=== PATIENT | male | born 1965 | race Caucasian/White ===

== ENCOUNTER 2016-08-15 22:25 | Observation (INO) | payer OTHER ==
[~2016-08-15] VITALS: Ht 175.3 cm; Wt 108.0 kg
[2016-08-15] MEDS ORDERED: MoRPHine SULFATE 10 MG/ML CARP/VIAL IV STA (22:39)
[2016-08-15] MEDS ORDERED: ONDANSETRON INJ 2 MG/ML 2 ML VIAL IV STA (22:39)
[2016-08-15] MEDS ORDERED: SODIUM CHLORIDE 0.9% 1000ML 1,000 ML IV STA (22:39)
--- NOTE | 2016-08-15 23:00 | DIAGNOSTIC IMAGING REPORT ---
CHEST ONE VIEW PORTABLE HISTORY: RUQ/right rib pain COMPARISON: Chest 02/04/2008. FINDINGS: The lungs are clear. Cardiac silhouette is normal in size. No pleural effusions. No pneumothorax. No rib fractures identified. IMPRESSION: No acute process. Electronically signed by: Per Catherine M.D. 08/15/2016 10:59 PM Dictated Date/Time: 08/15/2016 10:57 PM
--- NOTE | 2016-08-15 23:04 | EMERGENCY ROOM VISIT NOTE ---
History First contact with patient: 22:30 Chief Complaint: ABDOMINAL PAIN Stated Complaint: URQ PAIN Nursing Triage Summary: c/o ruq abd pain since 1900. states hx of " gallbladder issues in the past." History of Present Illness The patient is a 51 year old male who presents to the Emergency Room with complaints of right upper quadrant pain. The patient states that approximately 3 hours ago, he had an acute onset of right upper quadrant pain with radiation into the back. The patient states that after eating dinner tonight, he developed right upper quadrant pain. He states he had steak and ribs for dinner. He feels he may be having a gallbladder attack, because he did have similar symptoms approximately 10 years ago. He denies any associated nausea, vomiting, changes in bowel movements, urinary symptoms, chest pain or shortness of breath. He denies any aggravating or alleviating factors. He rates the discomfort a 9/10 and states it has been constant. He has a history of a hernia repair but denies any other significant past medical history. He has not taken any medication for his pain. Review of Systems A complete 10 point review of systems was reviewed with the patient with pertinent positives and negatives as per history of present illness. All else were negative. Past Medical/Surgical History Medical Problems: (1) Rupture of distal biceps tendon Social History Smoking Status: Never Smoker Marital Status: Housing Status: lives with significant other Occupation Status: employed Current/Historical Medications No Active Prescriptions or Reported Meds Allergies Coded Allergies: No Known Allergies (Unverified , 08/15/16) Physical Exam Vital Signs Date Time Temp Pulse Resp B/P (MAP) Pulse Ox O2 Delivery O2 Flow Rate FiO2 08/16/16 01:46 75 18 129/84 96 08/15/16 23:54 70 18 133/82 96 Room Air 08/15/16 22:27 36.5 67 18 159/104 97 Room Air Physical Exam VITALS: Vitals are noted on the nurse's note and reviewed by myself. Vital signs stable. GENERAL: This is a 51-year-old male, in no acute distress, nondiaphoretic, well- developed well-nourished. SKIN: No rashes present. HEENT: Normocephalic. PERRLA. EOMI. Nares patent. Mucous membranes moist. HEART: Regular rate and rhythm without murmurs gallops or rubs. LUNGS: Clear to auscultation bilaterally without wheezes, rales or rhonchi. ABDOMEN: Positive bowel sounds x 4. Soft, no significant tenderness to palpation. MUSCULOSKELETAL: No chest wall tenderness. NEURO: Patient was alert and oriented to person place and time. Medical Decision & Procedures ER Provider Diagnostic Interpretation: US RUQ: Distended gallbladder with a nonmobile stone at the gallbladder neck. Sludge also noted within the gallbladder. Gallbladder wall is not thickened. Evaluation for sonographic Shankar's sign noted by recent pain medication. Correlation with nuclear medicine scan could be considered as clinically warranted. Common bile duct is not dilated. Liver and right kidney unremarkable. Radiologist: Ej Salmeron MD Laboratory Results 08/15/16 23:05 Red Blood Count 5.16, Mean Corpuscular Volume 95.0, Mean Corpuscular Hemoglobin 31.8, Mean Corpuscular Hemoglobin Concent 33.5, Mean Platelet Volume 10.4, Neutrophils (%) (Auto) 49.7, Lymphocytes (%) (Auto) 37.8, Monocytes (%) (Auto) 8.8, Eosinophils (%) (Auto) 2.9, Basophils (%) (Auto) 0.5, Neutrophils # (Auto) 3.71, Lymphocytes # (Auto) 2.82, Monocytes # (Auto) 0.66, Eosinophils # (Auto) 0.22, Basophils # (Auto) 0.04 08/15/16 23:05 Test 08/15/16 23:00 08/15/16 23:05 Urine Color YELLOW Urine Appearance CLEAR (CLEAR) Urine pH 7.5 (4.5-7.5) Urine Specific Belden 1.021 (1.000-1.030) Urine Protein NEG (NEG) Urine Glucose (UA) NEG (NEG) Urine Ketones NEG (NEG) Urine Occult Blood NEG (NEG) Urine Nitrite NEG (NEG) Urine Bilirubin NEG (NEG) Urine Urobilinogen NEG (NEG) Urine Leukocyte Esterase NEG (NEG) White Blood Count 7.47 K/uL (4.8-10.8) Red Blood Count 5.16 M/uL (4.7-6.1) Hemoglobin 16.4 g/dL (14.0-18.0) Hematocrit 49.0 % (42-52) Mean Corpuscular Volume 95.0 fL (80-100) Mean Corpuscular Hemoglobin 31.8 pg (25-34) Mean Corpuscular Hemoglobin Concent 33.5 g/dl (32-36) Platelet Count 221 K/uL (130-400) Mean Platelet Volume 10.4 fL (7.4-10.4) Neutrophils (%) (Auto) 49.7 % Lymphocytes (%) (Auto) 37.8 % Monocytes (%) (Auto) 8.8 % Eosinophils (%) (Auto) 2.9 % Basophils (%) (Auto) 0.5 % Neutrophils # (Auto) 3.71 K/uL (1.4-6.5) Lymphocytes # (Auto) 2.82 K/uL (1.2-3.4) Monocytes # (Auto) 0.66 K/uL (0.11-0.59) Eosinophils # (Auto) 0.22 K/uL (0-0.5) Basophils # (Auto) 0.04 K/uL (0-0.2) RDW Standard Deviation 45.5 fL (36.4-46.3) RDW Coefficient of Variation 13.1 % (11.5-14.5) Immature Granulocyte % (Auto) 0.3 % Immature Granulocyte # (Auto) 0.02 K/uL (0.00-0.02) D-Dimer 430 ug/L FEU (0-500) Anion Gap 8.0 mmol/L (3-11) Est Creatinine Clear Calc Drug Dose 64.7 ml/min Estimated GFR () 56.2 Estimated GFR (Non- 48.5 BUN/Creatinine Ratio 14.8 (10-20) Calcium Level 8.6 mg/dl (8.5-10.1) Total Bilirubin 0.3 mg/dl (0.2-1) Aspartate Amino Transf (AST/SGOT) 22 U/L (15-37) Alanine Aminotransferase (ALT/SGPT) 30 U/L (12-78) Alkaline Phosphatase 100 U/L (45-117) Total Protein 7.6 gm/dl (6.4-8.2) Albumin 4.1 gm/dl (3.4-5.0) Globulin 3.5 gm/dl (2.5-4.0) Albumin/Globulin Ratio 1.2 (0.9-2) Lipase 195 U/L (73-393) Medications Administered Medications (Trade) Dose Ordered Sig/Chapo Route Start Time Stop Time Status Last Admin Dose Admin Sodium Chloride 1,000 ml @ 999 mls/hr Q1H1M STAT IV 08/15/16 22:39 08/15/16 23:39 DC 08/15/16 23:08 999 MLS/HR Morphine Sulfate (MoRPHine SULFATE INJ) 6 mg NOW STAT IV 08/15/16 22:39 08/15/16 22:41 DC 08/15/16 23:08 6 MG Ondansetron HCl (Zofran Inj) 4 mg NOW STAT IV 08/15/16 22:39 08/15/16 22:41 DC 08/15/16 23:08 4 MG ED Course The patient was evaluated as above. Labs were drawn and IV access was obtained. Patient was medicated with 6 mg morphine IV, 4 mg Zofran IV and 1 L normal saline solution. Patient was reevaluated and was informed that we are awaiting ultrasound results. He states his pain is much better now. Case was discussed with the Dr. Arevalo, general surgeon client professional. They agreed to evaluate the patient for admission. Medical Decision Differential diagnosis includes cholecystitis, ascending cholangitis, pancreatitis, hepatitis, pulmonary embolism, herpes zoster, among others. The patient is a 51-year-old male who presents today complaining of with upper quadrant abdominal pain which began after eating dinner tonight. Labs revealed no leukocytosis, anemia or concerning elect avoid abnormalities. Lipase is not elevated. LFTs within normal limits. Urinalysis was not suggestive of infection. Right upper quadrant ultrasound did show a stone within the gallbladder neck and gallbladder sludge. Consultation was made with general surgery, Dr. Arevalo, who agreed to evaluate the patient for admission. Medication reconciliation: I attest that I have personally reviewed the patient 's current medication list. Blood pressure screening: Patient was found to have an elevated blood pressure and was referred to their primary care provider for recheck and further treatment. Impression Primary Impression: Gall bladder disease Departure Information Prescriptions No Active Prescriptions or Reported Meds Referrals Liliane Chandler D.O. (PCP) Patient Instructions My [facility]
[2016-08-15 23:18] LABS: BASO % 0.5 %; BASO ABS # 0.04 K/uL (0-0.2); COMPLETE YES; EOS % 2.9 %; IG% 0.3 %; LYMPH % 37.8 %; LYMPH ABS # 2.82 K/uL (1.2-3.4); MEAN CORPUSCULAR HEMOGLOBIN 31.8 pg (25-34); MEAN CORPUSCULAR HGB CONC 33.5 g/dl (32-36); MEAN PLATELET VOLUME 10.4 fL (7.4-10.4); MONO % 8.8 %; NEUT % 49.7 %; PLATELET COUNT 221 K/uL (130-400); RED BLOOD COUNT 5.16 M/uL (4.7-6.1); WHITE BLOOD COUNT 7.47 K/uL (4.8-10.8)
[2016-08-15 23:27] LABS: URINE APPEARANCE CLEAR (CLEAR); URINE BILIRUBIN NEG (NEG); URINE COLOR YELLOW; URINE NITRITE NEG (NEG); URINE PH 7.5 (4.5-7.5); URINE SPECIFIC GRAVITY 1.021 (1.000-1.030); UROBILINOGEN NEG (NEG); ZZUR CULT IF INDIC CLEAN CATCH NO
[2016-08-15 23:35] LABS: BUN/CREATININE RATIO 14.8 (10-20); CALCIUM 8.6 mg/dl (8.5-10.1); CREATININE 1.6 mg/dl (0.60-1.40); POTASSIUM 3.9 mmol/L (3.5-5.1)
[2016-08-15 23:38] LABS: ALB/GLOB RATIO 1.2 (0.9-2)
[2016-08-15 23:38] LABS: MANUAL MICROSCOPIC REQUIRED? NO; REVIEW REQ? NO
[2016-08-16] VITALS (9 sets, daily range): BP systolic 110–164; BP diastolic 70–93; PULSE 69–100; TEMP 36.3–36.8; O2SAT 92–97; Ht 175.3 cm; Wt 108.0 kg
[2016-08-16] MEDS ORDERED: NURSING VERBAL MED ORDER ONE (01:30)
[2016-08-16] MEDS ORDERED: ONDANSETRON INJ 2 MG/ML 2 ML VIAL IV PRN ×2 (02:15→14:30)
[2016-08-16] MEDS ORDERED: IV FLUIDS COMPLETED PRN (02:15)
[2016-08-16] MEDS ORDERED: MoRPHine SULFATE 2 MG/ML CARP IV PRN (02:15)
[2016-08-16] MEDS: CEFOXITIN IV 2,000 MG in DEXTROSE 5% 50ML 50 ML IV SCH ×4 (02:25→19:29)
[2016-08-16] MEDS: LACTATED RINGER'S 1000ML 1,000 ML IV SCH ×3 (02:26→18:06)
--- NOTE | 2016-08-16 07:13 | DIAGNOSTIC IMAGING REPORT ---
ULTRASOUND RIGHT UPPER QUADRANT ABDOMEN CLINICAL HISTORY: Right upper quadrant abdominal pain. COMPARISON STUDY: Abdominal CT dated 02/04/2008. TECHNIQUE: Real-time, grayscale, and color flow sonography of the right upper quadrant of the abdomen was performed. Images are reviewed in the transverse and longitudinal planes. FINDINGS: Liver: The liver is normal in size and echotexture. There is no intrahepatic biliary ductal dilatation. The main portal vein is patent. Gallbladder: The gallbladder is distended. There are shadowing calcified gallstones identified. A 2.2 cm stone is seen in the region of the gallbladder neck. The gallbladder wall is top normal in thickness measuring up to 3 mm and appears edematous. A sonographic Shankar's sign is equivocal. No pericholecystic fluid is identified. The common bile duct measures up to 0.2 cm in diameter. Pancreas: Not well visualized due to overlying bowel gas. Right kidney: Survey images of the right kidney demonstrate normal size and echotexture. There is no hydronephrosis. Ascites: None. IMPRESSION: 1. Cholelithiasis with findings concerning for acute cholecystitis. Clinical correlation will be required. Nuclear hepatobiliary scan could be considered for confirmation. 2. The pancreas was not well visualized due to overlying bowel gas. Electronically signed by: Devin Arias M.D. 08/16/2016 7:11 AM Dictated Date/Time: 08/16/2016 7:07 AM
--- NOTE | 2016-08-16 07:33 | History and Physical: Surg Cnt ---
History & Physical Date Aug 16, 2016. (Katia Patten ., JOSEPHINE) Chief Complaint RUQ abdominal pain (Katia Patten PA-C) History of Present Illness Rey is a pleasant 51 year-old male who presented to emergency department last evening around 2300 for right upper abdominal pain that began about 3 hours after dinner. He had steak and ribs for dinner. Rey states he had gallbladder issues about 15-20 years ago which would cause him some right upper pain and then resolve shortly after. He states this time the pain would not subside and was pretty substantial. States he never goes to the doctors but the pain was severe so he decided to go to emergency department. Denies of any associated fever, chills, nausea, vomiting, changes in bowel habits, diarrhea, constipation, or blood in stools. Pain radiated to the back. States he has had a hernia repair in . Unsure if they used mesh or not. No other abdominal surgeries. No significant past medical history. Takes no medications at home. Only other surgery was right distal biceps repair. He had an abdominal ultrasound in the ER which showed a 2.2 cm stone in the neck of the gallbladder with distended gallbladder findings concerning for acute cholecystitis. CBD 0.2 cm. Labs including cbc, and LFTS within normal limits. Since admission, Rey states the pain is no longer present and he is feeling much better. Had pain medication through the IV when he arrived in his room. (Katia Patten ., JOSEPHINE) Past Medical/Surgical History Medical Problems: (1) Rupture of distal biceps tendon (Katia Patten .JOSEPHINE) Additional History Hepatic Disease: No Endocrine Disorder: No Kidney Disease: No Hypertension: No Heart Disease: No Bleeding Tendencies: No Infectious Diseases: No (Katia Patten .JOSEPHINE) Allergies Coded Allergies: No Known Allergies (Unverified , 08/15/16) Home Medications No Active Prescriptions or Reported Meds Physical Examination Skin: warm/dry, no rash Eyes: sclerae normal Head: normocephalic, atraumatic Neck: trachea midline Respiratory/Chest: lungs clear, normal breath sounds, no respiratory distress Cardiovascular: regular rate, rhythm, no murmur Abdomen / GI: normal bowel sounds, non tender, + pertinent finding (negative Muprhy's sign) Back: normal inspection Extremities: normal inspection Neurologic/Psych: alert, oriented x 3 (Katia Patten ., MEEK-C) Diagnosis Cholelithiasis with Acute cholecystitis, distended gallbladder - No leukocytosis - LFTS within normal limits - CBD normal caliber - Ultrasound showing large 2.2 cm in the neck of the gallbladder. Patient currently asymptomatic and abdominal examination completely benign at this time. (He was given 6 mg of Morphine IV in the ER on arrival and then another 2 mg of Morphine at 2 am). (Katia Patten ., MEEK-C) Plan of Treatment Continue current management of IV fluids, IV antibiotics, IV pain medication and IV Zofran as needed Given the large gallstone at neck of gallbladder will discuss laparoscopic cholecystectomy with patient (Katia Patten ., PA-C) RUQ abdominal pain with cholelithiasis and mild gallbladder wall thickening. Pain is now just a dull ache, LFT's and WBC normal. Have recommended laparoscopic cholecystectomy. I have explained the possible need to convert to an open procedure and explained the possible complications and answered his questions. He has signed a consent form. (Hans Cabrera M.D.)
[2016-08-16] MEDS ORDERED: HEPARIN SOD (PORCINE) 1000 UNIT/ML 10 ML VIAL ONE (14:01)
[2016-08-16] MEDS ORDERED: BUPIVACAINE 0.5 % 5 MG/1 ML MPF 30ML VIAL ONE (14:01)
[2016-08-16] MEDS ORDERED: CONRAY 60% 50 ML VIAL ONE (14:01)
[2016-08-16] MEDS ORDERED: CEFAZOLIN SOD 1 GM VIAL ONE (14:01)
[2016-08-16] MEDS ORDERED: ROCURONIUM BROMIDE 10 MG/ML 5 ML VIAL ONE (14:03)
[2016-08-16] MEDS ORDERED: DEXAMETHASONE SOD INJ 4 MG/ML VIAL ONE (14:03)
[2016-08-16] MEDS ORDERED: FENTANYL CITRATE INJ 50 MCG/1 ML 2 ML VIAL ONE ×2 (14:03→15:28)
[2016-08-16] MEDS ORDERED: ONDANSETRON INJ 2 MG/ML 2 ML VIAL ONE (14:03)
[2016-08-16] MEDS ORDERED: LIDOCAINE HCL 2% 2 ML VIAL (20MG/ML) ONE (14:03)
[2016-08-16] MEDS ORDERED: PROPOFOL IV EMULSION 10 MG/ML 20 ML VIAL IV ONE (14:03)
[2016-08-16] MEDS ORDERED: MIDAZOLAM HCL 1 MG/ML 2ML VIAL ONE (14:03)
[2016-08-16] MEDS ORDERED: HYDROmorphone INJ 0.5 MG/0.5 ML SYR IV PRN (14:30)
[2016-08-16] MEDS ORDERED: LABETALOL HCL IV 5 MG/ML 20ML IV PRN (14:30)
[2016-08-16] MEDS ORDERED: ATROPINE SULFATE 0.1 MG/ML 5ML SYR IV PRN (14:30)
[2016-08-16] MEDS ORDERED: KETOROLAC TROMETHAMINE 30 MG/ML VIAL IV. PRN (14:30)
[2016-08-16] MEDS ORDERED: PHENYLEPHRINE 100MCG/ML 5ML SYR ONE (14:57)
[2016-08-16] MEDS ORDERED: GLYCOPYRROLATE INJ 0.2 MG/ML VIAL ONE ×2 (15:06→15:25)
[2016-08-16] MEDS ORDERED: KETOROLAC TROMETHAMINE 30 MG/ML VIAL ONE (15:06)
[2016-08-16] MEDS ORDERED: NEOSTIGMINE METHYLSULFATE 5 MG/5 ML SYR ONE (15:06)
--- NOTE | 2016-08-16 15:41 | [facility] Post Operative Brief Note ---
Immediate Operative Summary Operative Date Aug 16, 2016. Pre-Operative Diagnosis Acute cholecystitis, cholelithiasis Post-Operative Diagnosis Acute cholecystitis, cholelithiasis Procedure(s) Performed Laparoscopic Cholecystectomy Surgeon Dr. Cabrera Lay Up Operator Surgeon(s) Marla Brewer, Matthew Santos student [employer] Estimated Blood Loss 10 cc Findings See dictation Specimens A: gallbladder and contents Drains None Anesthesia General Complication(s) None Disposition Recovery Room / PACU
[2016-08-16] MEDS ORDERED: MoRPHine SULFATE 4 MG/ML 1 ML CARP\\VIAL IV PRN (15:45)
[2016-08-16] MEDS ORDERED: ESMOLOL HCL 10 MG/ML 10 ML VIAL ONE (15:51)
--- NOTE | 2016-08-16 16:40 | Anesthesiology Progress Note ---
Anesthesia Post Op Note Date & Time Aug 16, 2016 at 16:40 Vital Signs Pain Intensity: 0 Vital Signs Past 12 Hours Date Time Temp Pulse Resp B/P (MAP) Pulse Ox O2 Delivery O2 Flow Rate FiO2 08/16/16 16:31 150/94 08/16/16 16:30 76 17 08/16/16 16:30 74 17 94 08/16/16 16:26 149/94 08/16/16 16:25 75 16 08/16/16 16:25 74 16 92 08/16/16 16:24 148/94 08/16/16 16:22 78 18 08/16/16 16:22 78 18 90 08/16/16 16:21 164/88 08/16/16 16:20 36.8 81 19 148/94 (103) 94 Nasal Cannula 2 08/16/16 16:17 80 19 08/16/16 16:17 81 19 93 08/16/16 16:16 150/97 08/16/16 16:12 83 20 08/16/16 16:12 84 20 93 08/16/16 16:11 127/97 08/16/16 16:07 72 19 08/16/16 16:07 71 19 95 08/16/16 16:06 84 21 08/16/16 16:06 84 21 124/79 95 08/16/16 16:01 83 20 08/16/16 16:01 79 20 123/79 94 08/16/16 15:57 139/90 08/16/16 15:56 36.1 86 16 139/90 94 Mask 10 08/16/16 07:40 Room Air 08/16/16 07:13 36.7 74 16 135/92 (106) 97 Room Air Notes Mental Status: alert / awake / arousable, participated in evaluation Pt Amnestic to Procedure: Yes Nausea / Vomiting: adequately controlled Pain: adequately controlled Airway Patency, RR, SpO2: stable & adequate BP & HR: stable & adequate Hydration State: stable & adequate Anesthetic Complications: no major complications apparent
[2016-08-16] MEDS: OXYCODONE/ACETAMINOPHEN 5-325 TAB PO PRN ×2 (16:53→21:28)
--- NOTE | 2016-08-16 22:18 | OPERATIVE REPORT ---
DATE OF OPERATION: 08/16/2016 PREOPERATIVE DIAGNOSES: Cholelithiasis, acute cholecystitis. POSTOPERATIVE DIAGNOSES: Same. PROCEDURE: Laparoscopic cholecystectomy. SURGEON: Dr. Cabrera. P[employer]ER [employer]INTS RESTORER: Katia Patten PA-C. FINDINGS: The gallbladder had 1 large stone within the lumen. The cystic duct was not dilated. There was some edema around the gallbladder. The gallbladder wall was mildly thickened. The liver was of normal size and contour. TECHNIQUE: The patient was given a general anesthetic and the area was prepped and draped in usual sterile fashion. Transverse incision was made below the umbilicus and carried down through the subcutaneous tissue to the fascia. During that dissection, a small umbilical hernia was identified. The hernia sac and preperitoneal fat were off the surrounding connective tissue and off the skin and then amputated. That allowed me to access the abdomen through the hernia defect. The abdomen was then insufflated to a pressure of 15 mmHg with carbon dioxide. The upper midline, midclavicular and anterior axial introducers were placed under direct vision through small skin incisions. I was then able to elevate the gallbladder and grasp the infundibulum and open the peritoneum, first on the lateral side, then anteriorly, then into the triangle of Calot, and then dissecting the infundibulum away from the liver on the lateral and then medial sides. That allowed me to identify the cystic duct. The cystic duct was isolated 360 degrees, clamped twice proximally and once near the gallbladder and divided. That allowed me further access behind the cystic duct and the cystic artery could be identified, isolated, clamped twice proximally and once near the gallbladder and divided. There were some other tubular structures that were clamped and divided. In dissecting the gallbladder, it was noted that most likely the large lymphatics were posterior branches of the artery. Once the gallbladder dissection off the liver was completed, the gallbladder was placed into an Endobag and brought out through the upper midline incision. That introducer was replaced and the liver edge was elevated. There was no bleeding from the gallbladder bed of the liver and the previously placed clips were intact. Subdiaphragmatic and subhepatic spaces were irrigated and irrigation removed and that was repeated until the return was clear. The gas was allowed to escape. The umbilical introducer site which was through the hernia was closed with interrupted 0 PDS in the upper midline and the fascia was closed with interrupted 2-0 Vicryl. The skin was closed with 4-0 Monocryl in either an interrupted or running subcuticular fashion. Skin was anesthetized with 0.5% Marcaine. The skin was cleansed, dried, benzoin placed, Steri-Strips applied. Estimated blood loss was 10 mL. Sponge, needle and instrument counts were correct prior to closure. The patient tolerated the surgical procedure without complication and was transferred to recovery. I attest to the content of the Intraoperative Record and any orders documented therein. Any exception s are noted below.
[2016-08-17] MEDS: CEFOXITIN IV 2,000 MG in DEXTROSE 5% 50ML 50 ML IV SCH ×2 (01:54→08:20)
[2016-08-17] MEDS: LACTATED RINGER'S 1000ML 1,000 ML IV SCH (01:54)
[2016-08-17 03:10] VITALS: BP 94/59; PULSE 73; TEMP 36.7; O2SAT 94
[2016-08-17 07:29] VITALS: BP 133/91; PULSE 76; TEMP 36.6; O2SAT 94
--- NOTE | 2016-08-17 08:02 | Anesthesiology Progress Note ---
Anesthesia Post Op Note Date & Time Aug 17, 2016 at 08:02 Vital Signs Vital Signs Past 12 Hours Date Time Temp Pulse Resp B/P (MAP) Pulse Ox O2 Delivery O2 Flow Rate FiO2 08/17/16 07:29 36.6 76 19 133/91 (105) 94 Room Air 08/17/16 03:10 36.7 73 16 94/59 (71) 94 Room Air 08/16/16 23:00 36.8 100 16 110/70 (83) 94 Room Air 08/16/16 20:07 36.5 94 18 131/89 (103) 94 Room Air Notes Mental Status: alert / awake / arousable, participated in evaluation Pt Amnestic to Procedure: Yes Nausea / Vomiting: adequately controlled Pain: adequately controlled Airway Patency, RR, SpO2: stable & adequate BP & HR: stable & adequate Hydration State: stable & adequate Anesthetic Complications: no major complications apparent
--- NOTE | 2016-08-17 09:05 | Surgery Progress Note ---
Surgery Progress Note Date of Service Aug 17, 2016. Subjective Post OP Day: 1 + feeling well, + ambulating, + flatus, + pain controlled, + diet (had some crakers and rice last night), No complaints, No chest pain, No SOB, No bowel movement, No nausea, No vomiting Objective Vital Signs: Date Time Temp Pulse Resp B/P (MAP) Pulse Ox O2 Delivery O2 Flow Rate FiO2 08/17/16 08:00 Room Air 08/17/16 07:29 36.6 76 19 133/91 (105) 94 Room Air 08/17/16 03:10 36.7 73 16 94/59 (71) 94 Room Air 08/16/16 23:00 36.8 100 16 110/70 (83) 94 Room Air 08/16/16 20:07 36.5 94 18 131/89 (103) 94 Room Air 08/16/16 19:30 Room Air 08/16/16 18:45 36.3 75 16 142/89 (106) 95 Nasal Cannula 2.0 08/16/16 17:40 36.5 69 16 133/82 (99) 92 Nasal Cannula 2.0 08/16/16 17:07 36.4 70 16 134/84 (101) 92 Nasal Cannula 2.0 08/16/16 16:45 93 Nasal Cannula 2.0 08/16/16 16:45 93 Nasal Cannula 2.0 08/16/16 16:31 150/94 08/16/16 16:30 76 17 08/16/16 16:30 74 17 94 08/16/16 16:26 149/94 08/16/16 16:25 75 16 08/16/16 16:25 74 16 92 08/16/16 16:24 148/94 08/16/16 16:22 78 18 08/16/16 16:22 78 18 90 08/16/16 16:21 164/88 08/16/16 16:20 36.8 81 19 148/94 (103) 94 Nasal Cannula 2 08/16/16 16:17 80 19 08/16/16 16:17 81 19 93 08/16/16 16:16 150/97 08/16/16 16:12 83 20 08/16/16 16:12 84 20 93 08/16/16 16:11 127/97 08/16/16 16:07 72 19 08/16/16 16:07 71 19 95 08/16/16 16:06 84 21 08/16/16 16:06 84 21 124/79 95 08/16/16 16:01 83 20 08/16/16 16:01 79 20 123/79 94 08/16/16 15:57 139/90 08/16/16 15:56 36.1 86 16 139/90 94 Mask 10 General Appearance: WD/WN, no apparent distress Head: normocephalic, atraumatic Neck: trachea midline Respiratory/Chest: no respiratory distress, no accessory muscle use Abdomen: non tender, non distended, soft, no organomegaly Incision(s): clean, dry, intact, findings (steri strips present) Assessment & Plan POD # 1 s/p Laparoscopic Cholecystectomy -vitals stable - pain minimal, controlled - tolerated some regular diet last night , not much - urinating and ambulating without difficulty Plan: discharge home today Rx for PO Percocet Discharge instructions given Follow-up in 2 weeks Work note will be given to be off for 2 weeks until follow-up Dr. Cabrera has seen patient and agrees with above
[2016-08-17 10:49] VITALS: BP 133/91; PULSE 76; TEMP 36.6; O2SAT 94
[2016-08-17] MEDS ORDERED: OXYC-57 PO (11:05)
--- NOTE | 2016-08-17 11:13 | Discharge Instructions ---
Discharge Instructions Date of Service Aug 17, 2016. Admission Reason for Admission: Acute Cholecystitis Discharge Discharge Diagnosis / Problem: Calculous Cholecystitis Discharge Goals Goal(s): Decrease discomfort Activity Recommendations Activity Limitations: as noted below No heavy lifting over 20 pounds for 2 weeks No strenuous activity or contact sports/work for 2 weeks [address] while taking narcotic pain medication No submerging incisions underwater (bathing, swimming, hot tubs) for 2 weeks . Instructions / Follow-Up Instructions / Follow-Up You will be given note for work to be off for 2 weeks until follow-up Walking and lift activity is encouraged to prevent blood clots You can take Percocet and Ibuprofen in between or just High dose Ibuprofen if you prefer. Do not take Tylenol with Percocet as it has Tylenol in it. Follow-up with Dr. Cabrera or Katia Patten PA-C in 2 weeks please call office at [phone] to make an appointment Current Hospital Diet Patient's current hospital diet: Regular Diet Discharge Diet Recommended Diet: Regular Diet Procedures Procedures Performed: Laparoscopic Cholecystectomy Pending Studies Studies pending at discharge: no Medical Emergencies . Who to Call and When: Medical Emergencies: If at any time you feel your situation is an emergency, please call 911 immediately. . Non-Emergent Contact Non-Emergency issues call your: Primary Care Provider, Surgeon Call Non-Emergent contact if: you have a fever, temperature is above 101.5, your pain is not controlled, your pain is worsening, wound has increased drainage, wound has increased redness, wound has increased pain . "Provider Documentation" section prepared by Katia Patten. . VTE Core Measure Inpt VTE Proph given/why not?: [facility] Drug Monitoring Program Search Results: patient reviewed within database, no issues identified
--- NOTE | 2016-08-18 16:03 | Discharge Summary ---
Discharge Summary Dates Admission Date / Time: Aug 16, 2016 at 01:22 Discharge Date: Aug 17, 2016 Dispostion / Condition Discharge Disposition: Home Condition at Discharge: Good Principal Diagnosis (1) Calculous cholecystitis Problem List (1) Calculous cholecystitis Consultations / Procedures Consultations: None Procedures: Laparoscopic Cholecystectomy Pending Studies / Follow-Up None Medication Reconciliation New Medications: Oxycodone/Acetaminophen 5MG/325MG (Percocet 5MG/325MG) Tab 1 TABLET PO Q4H PRN for Pain, #15 TAB PAIN Admission HPI Per the Admitting provider: Rey is a pleasant 51 year-old male who presented to emergency department last evening (08/15/16) around 2300 for right upper abdominal pain that began about 3 hours after dinner. He had steak and ribs for dinner. Rey states he had gallbladder issues about 15-20 years ago which would cause him some right upper pain and then resolve shortly after. He states this time the pain would not subside and was pretty substantial. States he never goes to the doctors but the pain was severe so he decided to go to emergency department. Denies of any associated fever, chills, nausea, vomiting, changes in bowel habits, diarrhea, constipation, or blood in stools. Pain radiated to the back. States he has had a hernia repair in . Unsure if they used mesh or not. No other abdominal surgeries. No significant past medical history. Takes no medications at home. Only other surgery was right distal biceps repair. He had an abdominal ultrasound in the ER which showed a 2.2 cm stone in the neck of the gallbladder with distended gallbladder findings concerning for acute cholecystitis. CBD 0.2 cm. Labs including cbc, and LFTS within normal limits. Since admission, Rey states the pain is no longer present and he is feeling much better. Had pain medication through the IV when he arrived in his room. Hospital Course (1) Calculous cholecystitis Patient was admitted to Medical/Surgical floor from the emergency department, placed on IV fluids, IV antibiotics, IV pain medications and kept NPO. He was evaluated and laparoscopic cholecystectomy was discussed given large gallstone at neck of gallbladder. He was taken to operating room on 08/16/2016 for laparoscopic cholecystectomy. Patient tolerated the procedure well without any complications and was transferred to PACU and then back to Medical/surgical floor in stable condition. Post op orders included: diet as tolerated, IV pain medication in form of Morphine and PO Percocet as needed for pain, IV Zofran, and activity as tolerated. POD # 1 patient was feeling fine. Preoperative pain did not reoccur and had minimal post operative pain just soreness at incision sites. Denied of any nausea or vomiting. Ambulated and urinated without difficulty. Patient was discharge home in stable condition on post op day #1. Overall hospital course was uneventful. Discharge Instructions as given to patient on discharge Copies To Primary Care Provider: Liliane Chandler D.O.. Problem Qualifiers (1) Calculous cholecystitis: Cholecystitis acuity: acute Biliary obstruction: without biliary obstruction Qualified Codes: K80.00 - Calculus of gallbladder with acute cholecystitis without obstruction
== END 2016-08-17 11:30 | disposition home or self-care (01) ==
LOC: C.EDB 22:26 → C.MSN 08-16 01:22 → ENRESERV 08-16 01:39
PROVIDERS: ADMIT Surgery; ATTEND Surgery
DX: K80.12 Calculus of gallbladder with acute and chronic cholecystitis without obstruction (principal)